=== PATIENT | female | born 1990 | race African-American/Black ===

== ENCOUNTER → 2016-12-03 | Day surgery (SDC) | payer OTHER ==
[~2016-12-03] VITALS: Ht 152.4 cm; Wt 77.8 kg
== END | disposition home or self-care (01) ==
LOC: FAS 11-06 07:00
DX: G56.02 Carpal tunnel syndrome, left upper limb (principal); K21.9 Gastro-esophageal reflux disease without esophagitis; J45.909 Unspecified asthma, uncomplicated; N39.0 Urinary tract infection, site not specified; F32.9 Major depressive disorder, single episode, unspecified; Z79.899 Other long term (current) drug therapy; Z98.890 Other specified postprocedural states
CPT/HCPCS: 84703; J2704; J3010

== ENCOUNTER 2017-03-17 13:18 | Emergency (ER) | payer OTHER | END 2017-03-17 16:01 | disposition home or self-care (01) | LOC: FER 13:18 | DX: S63.501A Unspecified sprain of right wrist, initial encounter (principal); F39 Unspecified mood [affective] disorder; M54.2 Cervicalgia; G89.29 Other chronic pain; W19.XXXA Unspecified fall, initial encounter; Z79.899 Other long term (current) drug therapy | CPT/HCPCS: 73130 ==